=== PATIENT | male | born 1950 | race Caucasian/White ===

== ENCOUNTER 2024-08-16 16:03 | Inpatient (IN) ==
[2024-08-16] MEDS: IPRATROPIUM/ALBUTEROL 3 ML AMPUL.NEB NEB ONE (16:25)
[2024-08-16] MEDS: ACETAMINOPHEN 1,000 MG/100 ML BAG IV ONE (16:27)
[2024-08-16] MEDS: KETOROLAC 30 MG/ML VIAL IV ONE (16:28)
[2024-08-16] MEDS: 0.9 % SODIUM CHLORIDE 1,000 ML IV ONE ×2 (16:37→16:41)
[2024-08-16] MEDS: AZITHROMYCIN 500 MG in 0.9 % SODIUM CHLORIDE 250 ML IV ONE (16:51)
[2024-08-16] MEDS: cefTRIAXone 2 GM in DEXTROSE 5% IN WATER 50 ML IV ONE (16:51)
[2024-08-16 16:54] LABS: Basophils # (Auto) 0.01 K/mcL (0.00-0.30); Basophils % (Auto) 0.1 % (0.0-2.0); Eosinophils # (Auto) 0 K/mcL (0.00-0.70); Eosinophils % (Auto) 0 % (0.0-7.0); Hematocrit 39.2 % (40.1-51.0); Hemoglobin 13.3 g/dL (13.7-17.5); Lymphocytes # (Auto) 0.31 K/mcL (1.50-4.80); Lymphocytes % (Auto) 4.4 % (15.5-49.0); Mean Cell Volume 95.1 fL (80.0-100.0); Mean Corpuscular HGB Conc 33.9 g/dL (31.0-36.0); Mean Platelet Volume 11.5 fL (8.8-12.5); Monocytes # (Auto) 0.15 K/mcL (0.10-0.90); Monocytes % (Auto) 2.1 % (1.0-12.0); Neutrophils % (Auto) 92.5 % (38.0-78.0); Platelet Count 232 K/mcL (140-440); RBC 4.12 M/mcL (4.63-6.08); Red Cell Distribution Width 12.4 % (11.5-14.5)
[2024-08-16 17:04] LABS: INR 0.9 (0.9-1.1); Prothrombin Time 12.6 sec (11.9-14.5)
[2024-08-16 17:56] LABS: ALT/SGPT 48 U/L (<40); AST/SGOT 37 U/L (<40); Albumin 4.4 gm/dL (3.2-5.2); Albumin/Globulin Ratio 1.5 (1.0-2.3); Alkaline Phosphatase 86 U/L (39-117); Bilirubin,Total 0.2 mg/dL (0.1-1.0); Blood Urea Nitrogen 18 mg/dL (8-23); Calcium 8.7 mg/dL (8.6-10.4); Carbon Dioxide 19 mmol/L (22-30); Chloride 97 mmol/L (96-108); Glomerular Filtration Rate 46; Glucose 313 mg/dL (70-105); Potassium 4.7 mmol/L (3.3-5.1); Sodium 137 mmol/L (133-145)
[2024-08-16 18:38] LABS: Appearance,Urine Clear (Clear); Bilirubin,Urine Negative (Negative); Color,Urine Yellow; Glucose,Urine (UA) >=1000 mg/dL (Negative); Ketones,Urine 15 mg/dL (Negative); Leukocyte Esterase,Urine Negative /uL (Negative); Nitrate,Urine Negative (Negative); Protein,Urine Negative (Negative); Specific Gravity,Urine 1.015 (1.000-1.035); Urine Blood Negative ery/mcL (Negative); Urine RBC 0 /hpf (0-3); Urine Squamous Epithelial Cell 0 /hpf (0-4); Urine WBC 0 /hpf (0-4); Urobilinogen,Urine Normal
[2024-08-16] MEDS: 0.9 % SODIUM CHLORIDE 250 ML IV ONE (18:53)
[2024-08-16] MEDS: METOCLOPRAMIDE 10 MG/2 ML VIAL IV ONE (18:53)
[2024-08-16] MEDS: diphenhydrAMINE 50 MG/ML VIAL IV ONE (18:53)
[2024-08-16] MEDS ORDERED: ONDANSETRON 4 MG/2 ML VIAL IV PRN (20:21)
[2024-08-16] MEDS ORDERED: POTASSIUM CHLORIDE 20 MEQ TABLET PO PRN ×2 (20:21)
[2024-08-16] MEDS ORDERED: POTASSIUM CHLORIDE 40 MEQ in DEXTROSE 5% IN WATER 500 ML IV PRN (20:21)
[2024-08-16] MEDS ORDERED: SENNOSIDES 1 TABLET PO PRN (20:21)
[2024-08-16] MEDS ORDERED: DEXTROSE 31 GM ORAL.SUSP PO PRN (20:21)
[2024-08-16] MEDS ORDERED: METOCLOPRAMIDE 10 MG/2 ML VIAL IV PRN (20:21)
[2024-08-16] MEDS ORDERED: DEXTROSE 50% 50 ML VIAL IV PRN (20:21)
[2024-08-16] MEDS ORDERED: POLYETHYLENE GLYCOL 3350 17 GM PACKET PO PRN (20:21)
[2024-08-16] MEDS ORDERED: morphine 4 MG/ML VIAL IV PRN (20:21)
[2024-08-16] MEDS ORDERED: MAGNESIUM SULFATE 2 GM/50 ML BAG IV PRN (20:21)
[2024-08-16] MEDS: DOCUSATE SODIUM 100 MG CAPSULE PO SCH (21:10)
[2024-08-16] MEDS: INSULIN LISPRO 1 UNIT/0.01 ML UNIT SQ SCH (21:11)
[2024-08-16] MEDS: MAGNESIUM SULFATE 2 GM/50 ML BAG IV ONE (21:12)
[2024-08-16] MEDS: methylPREDNISolone SOD SUCC 125 MG/2 ML VIAL IV SCH (23:11)
[2024-08-16] MEDS: IPRATROPIUM/ALBUTEROL 3 ML AMPUL.NEB NEB SCH (23:13)
[2024-08-16] MEDS: HYDROcodone/APAP 5/325MG TABLET PO PRN (23:41)
[2024-08-17 06:50] LABS: ALT/SGPT 38 U/L (<40); AST/SGOT 27 U/L (<40); Albumin 3.8 gm/dL (3.2-5.2); Albumin/Globulin Ratio 1.6 (1.0-2.3); Alkaline Phosphatase 78 U/L (39-117); Bilirubin,Direct < 0.2 mg/dL (0-0.3); Bilirubin,Total < 0.2 mg/dL (0.1-1.0); Blood Urea Nitrogen 23 mg/dL (8-23); Calcium 8.1 mg/dL (8.6-10.4); Carbon Dioxide 19 mmol/L (22-30); Chloride 101 mmol/L (96-108); Globulin 2.4 gm/dL (2.2-3.7); Glomerular Filtration Rate 75; Glucose 336 mg/dL (70-105); Lactate Dehydrogenase 163 U/L (135-225); Phosphorous 3.5 mg/dL (2.5-4.5); Potassium 4.2 mmol/L (3.3-5.1); Sodium 136 mmol/L (133-145); Triglycerides 90 mg/dL (<150); Uric Acid 5.1 mg/dL (2.5-8.0)
[2024-08-17 06:56] LABS: Basophils # (Auto) 0 K/mcL (0.00-0.30); Basophils % (Auto) 0 % (0.0-2.0); Eosinophils # (Auto) 0 K/mcL (0.00-0.70); Eosinophils % (Auto) 0 % (0.0-7.0); Hematocrit 33.7 % (40.1-51.0); Hemoglobin 11.4 g/dL (13.7-17.5); Lymphocytes # (Auto) 0.46 K/mcL (1.50-4.80); Lymphocytes % (Auto) 4.4 % (15.5-49.0); Mean Cell Volume 95.2 fL (80.0-100.0); Mean Corpuscular HGB Conc 33.8 g/dL (31.0-36.0); Monocytes # (Auto) 0.45 K/mcL (0.10-0.90); Monocytes % (Auto) 4.3 % (1.0-12.0); Neutrophils % (Auto) 90.5 % (38.0-78.0); Platelet Count 206 K/mcL (140-440); RBC 3.54 M/mcL (4.63-6.08); Red Cell Distribution Width 12.7 % (11.5-14.5); WBC 10.5 K/mcL (4.5-11.0)
[2024-08-17] MEDS: INSULIN GLARGINE, HUMAN 1 UNIT/0.01 ML SQ SCH (09:02)
[2024-08-17] MEDS: OLMESARTAN MEDOXOMIL 20 MG TABLET PO SCH (09:03)
[2024-08-17] MEDS: guaiFENesin/CODEINE 10 ML UDC PO SCH (09:03)
[2024-08-17] MEDS: ENOXAPARIN 40 MG/0.4 ML SYRINGE SQ SCH (09:03)
[2024-08-17] MEDS: ATORVASTATIN 20 MG TABLET PO SCH (09:04)
[2024-08-17] MEDS: amLODIPine 5 MG TABLET PO SCH (09:04)
[2024-08-17] MEDS: LEVOTHYROXINE SODIUM 112 MCG TABLET PO SCH (09:04)
[2024-08-17] MEDS: BUDESONIDE 0.5 MG/2 ML AMPUL.NEB NEB SCH (09:10)
[2024-08-17] MEDS: ACETAMINOPHEN 325 MG TABLET PO PRN (10:27)
[2024-08-17] MEDS: hydrALAZINE 20 MG/ML VIAL IV PRN (10:27)
[2024-08-17] MEDS: guaiFENesin/CODEINE 10 ML UDC PO PRN (12:46)
[2024-08-17] MEDS: methylPREDNISolone SOD SUCC 40 MG/ML VIAL IV SCH (13:51)
[2024-08-17] MEDS: INSULIN LISPRO 1 UNIT/0.01 ML UNIT SQ SCH (16:36)
[2024-08-17] MEDS: LORazepam 2 MG/ML VIAL IV PRN (20:20)
[2024-08-17] MEDS: diphenhydrAMINE 25 MG CAPSULE PO SCH (20:55)
[2024-08-17] MEDS: TAMSULOSIN 0.4 MG CAPSULE PO SCH (20:55)
[2024-08-18 06:42] LABS: ALT/SGPT 40 U/L (<40); AST/SGOT 60 U/L (<40); Albumin/Globulin Ratio 1.6 (1.0-2.3); Alkaline Phosphatase 71 U/L (39-117); Bilirubin,Direct < 0.2 mg/dL (0-0.3); Bilirubin,Total < 0.2 mg/dL (0.1-1.0); Blood Urea Nitrogen 20 mg/dL (8-23); C-Reactive Protein 1.14 mg/dL (0.03-0.80); Calcium 8.3 mg/dL (8.6-10.4); Carbon Dioxide 22 mmol/L (22-30); Chloride 100 mmol/L (96-108); Globulin 2.5 gm/dL (2.2-3.7); Glomerular Filtration Rate 85; Glucose 217 mg/dL (70-105); Lactate Dehydrogenase 231 U/L (135-225); Potassium 4.4 mmol/L (3.3-5.1); Sodium 137 mmol/L (133-145); Triglycerides 76 mg/dL (<150); Uric Acid 5.4 mg/dL (2.5-8.0)
[2024-08-18] MEDS: IPRATROPIUM/ALBUTEROL 3 ML AMPUL.NEB NEB PRN (08:12)
[2024-08-18] MEDS: amLODIPine 10 MG TABLET PO SCH (08:32)
[2024-08-18] MEDS: INSULIN GLARGINE, HUMAN 1 UNIT/0.01 ML SQ ONE (08:46)
[2024-08-18] MEDS: diphenhydrAMINE 25 MG CAPSULE PO PRN (12:04)
[2024-08-18] MEDS: methylPREDNISolone SOD SUCC 40 MG/ML VIAL IV SCH (20:06)
[2024-08-18] MEDS: 0.9 % SODIUM CHLORIDE 10 ML SYRINGE IV SCH (20:07)
[2024-08-19 06:25] LABS: ALT/SGPT 77 U/L (<40); AST/SGOT 81 U/L (<40); Albumin 3.8 gm/dL (3.2-5.2); Albumin/Globulin Ratio 1.5 (1.0-2.3); Alkaline Phosphatase 75 U/L (39-117); Bilirubin,Direct < 0.2 mg/dL (0-0.3); Bilirubin,Total 0.2 mg/dL (0.1-1.0); Blood Urea Nitrogen 22 mg/dL (8-23); Calcium 8.2 mg/dL (8.6-10.4); Carbon Dioxide 24 mmol/L (22-30); Chloride 99 mmol/L (96-108); Globulin 2.5 gm/dL (2.2-3.7); Glomerular Filtration Rate 85; Glucose 200 mg/dL (70-105); Lactate Dehydrogenase 234 U/L (135-225); Phosphorous 4.1 mg/dL (2.5-4.5); Potassium 4.2 mmol/L (3.3-5.1); Sodium 137 mmol/L (133-145); Triglycerides 74 mg/dL (<150); Uric Acid 5.9 mg/dL (2.5-8.0)
[2024-08-19 08:15] VITALS: TEMP 97.3; O2SAT 98
[2024-08-19] MEDS: predniSONE 20 MG TABLET PO SCH (08:17)
[2024-08-19] MEDS: INSULIN GLARGINE, HUMAN 1 UNIT/0.01 ML SQ ONE (09:33)
== END 2024-08-19 11:33 | disposition home or self-care (01) | DRG 189 ==
LOC: ED 16:03 → ICU 20:16 → MEDSUR 08-18 16:21
PROVIDERS: ADMIT Internal Medicine; ATTEND Internal Medicine